=== PATIENT | female | born 1965 | race Caucasian/White ===

== ENCOUNTER → 2023-10-05 08:24 | Outpatient (REF) | payer OTHER, SELFPAY | LOC: HWRAD 08:24 | PROVIDERS: ATTENDING PHYSICIAN Internal Medicine | DX: M25.551 Pain in right hip (principal); M79.18 Myalgia, other site | CPT/HCPCS: 73502 ==

== ENCOUNTER → 2024-02-06 10:04 | Outpatient (REF) | payer OTHER, SELFPAY | LOC: HWWDC 10:04 | PROVIDERS: ATTENDING PHYSICIAN Obstetrics & Gynecology Gynecology; FAMILY PHYSICIAN Internal Medicine | DX: Z12.31 Encounter for screening mammogram for malignant neoplasm of breast (principal) | CPT/HCPCS: 77063; 77067 ==

== ENCOUNTER → 2024-02-24 08:29 | Outpatient (REF) | payer OTHER, SELFPAY | LOC: MRI 3T 08:29 | PROVIDERS: ATTENDING PHYSICIAN Internal Medicine | DX: M25.551 Pain in right hip (principal); M79.18 Myalgia, other site | CPT/HCPCS: 73721 ==

== ENCOUNTER → 2025-04-29 15:13 | Outpatient (REF) | payer OTHER, SELFPAY | LOC: HWRAD 15:13 | PROVIDERS: ATTENDING PHYSICIAN Internal Medicine | DX: R05.3 Chronic cough (principal) | CPT/HCPCS: 71046 ==